=== PATIENT | female | born 1955 | race Hispanic/Latino ===

== ENCOUNTER → 2020-12-02 | Outpatient (CLI) | payer MEDICARE ==
[~2020-12-02] MED LIST: ASPIR 8181 MG PO; REGADENOSON 0.4 MG/5 ML SYR IV ONE; VITAMIN D2 PO
== END ==
LOC: NM 09:04
PROVIDERS: ATTEND Nurse Practitioner Family
DX: I20.8 Other forms of angina pectoris (principal)
CPT/HCPCS: 78452; 93017; A9502; J2785